=== PATIENT | male | born 1975 | race Caucasian/White ===

== ENCOUNTER 2017-03-26 06:23 | Inpatient (IN) | payer OTHER ==
[2017-03-26] VITALS (17 sets, daily range): BP systolic 103–147; BP diastolic 58–94; PULSE 90–116; RESP 12–20; O2SAT 93–100
[~2017-03-26] VITALS: Ht 182.9 cm; Wt 101.8 kg
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
[2017-03-26] MEDS ORDERED: Epinephrine Racemic 2.25% 0.5 mL Inhalation Solution NEB ONE (06:40)
[2017-03-26] MEDS ORDERED: MethylprednisoLONE Sodium Succinate 62.5 mg/mL 2 mL Inj IVPUSH ONE (06:40)
[2017-03-26 07:34] LABS: BASOPHILS % (AUTO) 0.3 % (0-3); EOSINOPHILS % (AUTO) 2.1 % (0-5); MONOCYTES % (AUTO) 7.4 % (4-12); Mean Corpuscular Hemoglobin 31.5 pg (27.0-35.0); Mean Corpuscular Volume 87.4 fL (81-100); NEUTROPHILS % (AUTO) 58.2 % (40-74); Platelet Count 176 bil/L (150-400)
[2017-03-26] MEDS: Propofol Inj 1,000,000 MCG in IV Premix 1 EACH IV SCH ×5 (07:40→20:47)
[2017-03-26] MEDS ORDERED: Rocuronium 10 mg/mL 5 mL Inj IVPUSH ONE (07:55)
[2017-03-26] MEDS ORDERED: Alum-Mag Hydrox-Simeth 30 mL Suspension PO PRN (08:05)
--- NOTE | 2017-03-26 08:22 | DRSVH ---
PROCEDURE: X-RAY CHEST ONE VIEW, PORTABLE ([id number]) INDICATIONS: INTUBATION TUBE PLACEMENT TECHNIQUE: One view of the chest was acquired. COMPARISON: None. FINDINGS: Surgical changes and devices: Endotracheal tube present 7.5 cm above the topher. front desk monitor lead s are seen over the chest. Lungs and pleura: No pleural effusions or pneumothorax. Question of minimal patchy infiltrate at the lung bases versus more likely subsegmental atelectasis. Lungs are otherwise clear. Mediastinum: Mediastinal contours appear normal. Heart size is normal. Bones and chest wall: No suspicious bony lesions. Overlying soft tissues appear unremarkable. IMPRESSION: Endotracheal tube relatively high. Probable segmental atelectasis rather than developing minimal patchy infiltrates at lung bases. Dictated by: Santy Stuart M.D. on 03/26/2017 at 8:19 Approved by: Santy Stuart M.D. on 03/26/2017 at 8:20
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
[2017-03-26] MEDS: Midazolam Inj 100 MG in IV Premix 1 EACH IV SCH (09:03)
--- NOTE | 2017-03-26 09:30 | ABG ---
DateTimeAnalyzed 09:22:00 -_ pH ____7.382 - 7.350 7.450 pCO2 ___37.3__ -mmHg 35.0 45.0 pO2 109 -mmHg 69.0 116 HCO3- ___21.7__ -mmol/L 22.0 26.0 ABE ___-2.4__ -mmol/L -2.0 2.0 tHb ___14.8__ -g/dL O2Hb ___96.3__ -% COHb ____0.9__ -% MetHb ____0.9__ -% sO2 ___98.1__ -% 25.0 FIO2 ___28.0__ -% PRVC 550 - PEEP ____5.0__ -cmH2O Set_RR ___14.0__ -b/min Drawn By JJ\\ - Date/Time Notified____ 09:30:00 -_ Spontaneous_RR ___14.0__ -b/min Oxygen Device 1 VENTILATOR - Notified By JJ - Notified Whom DR FUNMILAYO-SHELDON - B 762 -mmHg tO2 ___20.2__ -Vol% Arnav test _Positive -
--- NOTE | 2017-03-26 10:42 | DRSVH ---
PROCEDURE: X-RAY CHEST ONE VIEW, PORTABLE ([id number]) INDICATIONS: post tube adjustment TECHNIQUE: One view of the chest was acquired. COMPARISON: None. FINDINGS: Surgical changes and devices: There is an NG tube extending into the stomach. Side hole is in the dis cheko esophagus and needs to be advanced 10-15 cm. Endotracheal tube is 3 cm above the topher. Lungs and pleura: No pleural effusions or pneumothorax. Lungs are clear. Mediastinum: Mediastinal contours appear normal. Heart size is normal. Bones and chest wall: No suspicious bony lesions. Overlying soft tissues appear unremarkable. IMPRESSION: Endotracheal tube in good position 3 cm above the topher. NG tube shows a sidehole in the distal esophagus. Dictated by: Santy Stuart M.D. on 03/26/2017 at 10:35 Approved by: Santy Stuart M.D. on 03/26/2017 at 10:40
[2017-03-26 11:02] LABS: APPEARANCE,URINE CLOUDY (CLEAR,HAZY); COLOR,URINE YELLOW (YELLOW); OCCULT BLOOD,URINE NEGATIVE (NEGATIVE); UROBILINOGEN,URINE NORMAL (NORMAL)
--- NOTE | 2017-03-26 11:30 | NUR ---
Admit: Patient was transferred from ED via stretcher and was admitted to CCU room 2014 at about 1040. Slider board was utilized to transfer patient from stretcher to patient bed. Patient with vent settings: PRVC 21%/5PEEP/14RR/550TV. VSS. Tele: Sinus Tach low 100-110. PIV X2 infusing Propofol gtt 50mcg/kg/min and Midazolam 5mg/hr. OG tube to suction with small amount of dark red drainage (MD Notified). Delvalle draining pj urine to gravity. Pat at bedside.
[2017-03-26] MEDS: Chlorhexidine 0.12% 15 mL Oral Solution MT SCH ×4 (11:55→20:16)
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
[2017-03-26] MEDS ORDERED: Pantoprazole 4 mg/mL 10 mL Inj IVPUSH ONE (12:40)
[2017-03-26] MEDS ORDERED: Propofol 10,000 mCg/mL 20 mL Inj ONE (13:31)
[2017-03-26] MEDS ORDERED: Rocuronium 10 mg/mL 5 mL Inj ONE (13:31)
[2017-03-26] MEDS ORDERED: Succinylcholine Chloride 20 mg/mL 5 mL Inj ONE (13:31)
[2017-03-26] MEDS ORDERED: Etomidate 2 mg/mL 20 mL Inj IV ONE (13:31)
[2017-03-26] MEDS ORDERED: Dextrose 5% 0.45% NaCl 1,000 ML IV SCH (13:40)
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
[2017-03-26] MEDS: Famotidine Inj 20 MG in IV Premix 1 EACH IV SCH ×2 (14:12→20:22)
[2017-03-26] MEDS: MethylprednisoLONE Sodium Succinate 40 mg/mL Inj IVPUSH SCH ×2 (14:14→21:36)
--- NOTE | 2017-03-26 15:16 | DRSVH ---
PROCEDURE: X-RAY CHEST ONE VIEW, PORTABLE ([id number]) INDICATIONS: POST RE-INTUBATION TUBE PLACEMENT TECHNIQUE: One view of the chest was acquired. COMPARISON: None. FINDINGS: Surgical changes and devices: Endotracheal tube has been pulled back and is approximately 7 cm above the topher. Lungs and pleura: No pleural effusions or pneumothorax. Lungs are clear. Mediastinum: Mediastinal contours appear normal. Heart size is normal. Bones and chest wall: No suspicious bony lesions. Overlying soft tissues appear unremarkable. IMPRESSION: Acute disease is not seen in the AP semiupright chest. Repositioned endotracheal tube now 7 cm above the topher. Dictated by: Santy Stuart M.D. on 03/26/2017 at 15:13 Approved by: Santy Stuart M.D. on 03/26/2017 at 15:13
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
[2017-03-26] MEDS ORDERED: Pantoprazole 4 mg/mL 10 mL Inj IVPUSH SCH (16:30)
[2017-03-26] MEDS: Dextrose 5% 0.9% NaCl 1,000 ML IV SCH (16:39)
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
--- NOTE | 2017-03-26 18:30 | NUR ---
Replacement of ET tube: At about 1330 patients RR increased to 30s and patient RASS Score 1. SpO2: low 90s. Vent Settings PRVC 30%/5PEEP/14RR/550TV. RT was called to assess and noticed an ET cuff leak ( RT was unable to resolve) and that delivered tidal volumes had decreased. MD was notified. Anesthesiologist was called for ET tube replacement and administered Propofol 100mg and SUX 100mg IVP during the procedure. Patient now appears comfortable with RASS score 0. Vent settings: PRVC 30%/5PEEP/14RR/550TV. No signs of cuff leak. SpO2: mid 90s with RR 14. With delivered tidal volumes of 550-580. Will continue to monitor oxygenation and vitals closely.
[2017-03-26] MEDS: cefTRIAXone Inj 2,000 MG in Dextrose 5% Minibag Plus 50 ML IV SCH (20:22)
[2017-03-27] VITALS (12 sets, daily range): BP systolic 95–118; BP diastolic 45–74; PULSE 56–89; RESP 13–14; O2SAT 97–100
[2017-03-27] MEDS: Dextrose 5% 0.9% NaCl 1,000 ML IV SCH ×2 (00:23→11:34)
[2017-03-27] MEDS: Midazolam Inj 100 MG in IV Premix 1 EACH IV SCH (00:24)
[2017-03-27] MEDS: Chlorhexidine 0.12% 15 mL Oral Solution MT SCH ×6 (00:24→20:41)
[2017-03-27] MEDS: Propofol Inj 1,000,000 MCG in IV Premix 1 EACH IV SCH ×6 (00:31→23:16)
[2017-03-27 03:54] LABS: BASOPHILS % (AUTO) 0.1 % (0-3); EOSINOPHILS % (AUTO) 0 % (0-5); MONOCYTES % (AUTO) 3.7 % (4-12); Mean Corpuscular Volume 87.1 fL (81-100); NEUTROPHILS % (AUTO) 90.2 % (40-74); Platelet Count 173 bil/L (150-400)
[2017-03-27] MEDS: MethylprednisoLONE Sodium Succinate 40 mg/mL Inj IVPUSH SCH ×3 (05:38→22:14)
--- NOTE | 2017-03-27 05:45 | NUR ---
Mentation/Resp Patient remains intubated and on ventilator, sedated and not following commands Propofol at 50mcg/kg/min and Versed was at 5mg/hr at the start of this shift, Versed titrated down and currently at 1mg/hr, resting quietly and calm this shift, NPO and no OG tube per Dr. Arnold, 500ml urine output this shift, patient transferred to CCU SHERRIE bed, CHG bath done, linens changed, uneventful shift, will continue to monitor. Addendum: 03/27/17 at 0552 by NAZARIO ADDISON RN Amended: Links added.
[2017-03-27] MEDS ORDERED: Acetaminophen IV 1,000 MG in IV Premix 1 EACH IV ONE (06:35)
[2017-03-27] MEDS: Famotidine Inj 20 MG in IV Premix 1 EACH IV SCH ×2 (07:16→20:41)
--- NOTE | 2017-03-27 10:53 | DRSVH ---
PROCEDURE: CT NECK SOFT TISSUES WITH CONTRAST ([id number]) INDICATIONS: uvulitis TECHNIQUE: After the administration of intravenous contrast, 3.0 mm axial sections acquired from the sella to th e aortic arch. Additional oblique axial 3.0 mm sections acquired through the pharynx. 3 mm thick co jacquie reformats were generated. For radiation dose reduction, the following was used: automated exp osure control. COMPARISON: None. FINDINGS: Image quality: Excellent. Lymph nodes: No enlarged lymph nodes seen throughout the neck. Vessels: Visualized vasculature appears patent. Neck spaces: The oropharynx, nasopharynx, and pharynx demonstrate no mucosal lesions. There is an ov erall appearance of fullness within the distal oropharynx and peritonsillar regions. Nonenhancing flu id measuring approximately 6 mm AP by 20 mm transverse is present at the distal oropharynx, superior to the endotracheal tube. Extramucosal spaces appear unremarkable. Endotracheal tube is present and patent. Glands: The parotid and submandibular glands appear normal. Thyroid gland is unremarkable. Miscellaneous: Visualized brain and orbits appear normal. Lung apices demonstrate thickening along the right minor fissure. Superficial soft tissues appear normal. Bones: No suspicious bony lesions. Visualized sinuses and mastoids appear unremarkable. IMPRESSION: 1. Mild soft tissue fullness within the distalmost aspect of the oropharynx extending towards the per itonsillar region. Overall nonspecific and could be related to inflammation. No abscess is identifie d. As noted there is a small fluid collection, nonenhancing in the mid/distal oropharynx superior to the endotracheal tube. This could be secondary to secretions. However, clinical correlation is recom mended. 2. Mild opacity along the right minor fissure. This could be secondary to atelectasis versus developi ng pneumonia. Dictated by: Jennifer Gaines M.D. on 03/27/2017 at 10:45 Approved by: Jennifer Gaines M.D. on 03/27/2017 at 10:52
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
[2017-03-27] MEDS: fentaNYL 2,500 mCg/250 mL 2,500 MCG in IV Premix 1 EACH IV SCH (14:40)
[2017-03-27] MEDS: Dextrose 5% 0.45% NaCl 1,000 ML IV SCH (14:40)
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
--- NOTE | 2017-03-27 17:14 | NUR ---
Social Work: Multidisciplinary Rounds Pt discussed in am rounds. Pt is not medically stable for discharge at this time. Pt remains in CCU status- pt requires [employer] assessment however will not be seen today due to high census. [employer] will attempt to see pt and/or family tomorrow. CHERELLE Hubbard
--- NOTE | 2017-03-27 17:38 | NUR ---
Agitation/pain/CT scan Pt on versed at 2mg and propofol at 50mcg/ hr during beginning of shift. Pt awakes to voice and pulls at restraints and is restless (RASS score +1 to +2). Pt nods yes when asked if he was hurting, appears it is mostly his throat when asking him. Increased levels of sedation and discussed pain control with Dr Arnold. Started fentanyl drip per order and titrated off the versed and down on the fentanyl. Pt now RASS -1, and appears comfortable. TELE SR to SB 55-70s, titrating meds to effect (see CCU flow sheet). Took pt to CT scan this morning with no event. Pt remained hemodynamically stable and TELE SR on portable vent. No episodes of desaturation, tachycardia or agitation. at bedside most of shift, q2h turns and oral care continues.
[2017-03-27] MEDS: cefTRIAXone Inj 2,000 MG in Dextrose 5% Minibag Plus 50 ML IV SCH (18:35)
[2017-03-28] VITALS (11 sets, daily range): BP systolic 104–120; BP diastolic 54–80; PULSE 51–69; RESP 14–15; O2SAT 98–100
[2017-03-28] MEDS: Chlorhexidine 0.12% 15 mL Oral Solution MT SCH ×5 (00:29→16:30)
[2017-03-28] MEDS: Midazolam Inj 100 MG in IV Premix 1 EACH IV SCH (00:29)
[2017-03-28] MEDS: Propofol Inj 1,000,000 MCG in IV Premix 1 EACH IV SCH ×4 (02:01→12:38)
[2017-03-28] MEDS: Dextrose 5% 0.45% NaCl 1,000 ML IV SCH ×3 (04:10→17:03)
--- NOTE | 2017-03-28 04:24 | NUR ---
sedation/vent pt opens eyes with turning/mod stimulation, pt's states pt may go to OR in am for controlled extubation, propofol kept at 50mcg/kg/min due to pt attempting to sit up in bed with propofol at 45mcg/kg/min, fentanyl initially at 100mcg/hr now down to 50mcg/hr versed initially at 2mg/hr now at 1mg/hr, titrate sedation down as able to anticipate possible extubation in am RT in to see pt and deflated cuff, pt has air leak, hob up, resp rate=14-16/14, ls- cl/decreased, on sputum, oral care done, sats 98-100%, pt on vent at .30 fio2, tele- sb, hr 50's, bp low normal, afebrile, pj uop per f/c, no bm, bt present, abd snt, at bedside t/o shift, pt resting comfortably, see ccu flow sheet,
[2017-03-28 04:26] LABS: BASOPHILS % (AUTO) 0 % (0-3); EOSINOPHILS % (AUTO) 0 % (0-5); MONOCYTES % (AUTO) 3.6 % (4-12); Mean Corpuscular Hemoglobin 30.9 pg (27.0-35.0); Mean Corpuscular Volume 88.7 fL (81-100); NEUTROPHILS % (AUTO) 90.7 % (40-74); Platelet Count 175 bil/L (150-400)
--- NOTE | 2017-03-28 04:39 | NUR ---
pt's ring pt's ring removed per md order using lotion due to swollen fingers, ring given to pt's ,
--- NOTE | 2017-03-28 05:22 | ABG ---
DateTimeAnalyzed 05:14:00 -_ pH ____7.437 - 7.350 7.450 pCO2 ___33.4__ -mmHg 35.0 45.0 pO2 108 -mmHg 69.0 116 HCO3- ___22.2__ -mmol/L 22.0 26.0 ABE ___-0.9__ -mmol/L -2.0 2.0 tHb ___13.9__ -g/dL O2Hb ___96.5__ -% COHb ____0.9__ -% MetHb ____0.7__ -% sO2 ___98.1__ -% 25.0 FIO2 ___30.0__ -% PRVC 14 - PEEP ____5.0__ -cmH2O Set_RR ___14.0__ -b/min Vt __550.0__ -L Drawn By MM - Date/Time Notified____ 05:22:00 -_ Spontaneous_RR ___15.0__ -b/min Oxygen Device 1 VENTILATOR - Notified By MM - Notified Whom DR KENDREGEN - B 760 -mmHg tO2 ___18.9__ -Vol% Arnav test N/A -
[2017-03-28] MEDS: MethylprednisoLONE Sodium Succinate 40 mg/mL Inj IVPUSH SCH ×3 (05:46→22:27)
[2017-03-28] MEDS: Famotidine Inj 20 MG in IV Premix 1 EACH IV SCH ×2 (07:48→20:15)
--- NOTE | 2017-03-28 11:27 | NUR ---
NUTRITION FOLLOW UP: ASSESS: 42 YO male admitted to CCU with uvulitis causing upper airway obstruction, with unknown etiology. Pt remains intubated to protect his airway. Possible controlled extubation in the OR. ENT to see. PMHx: No PMH. DIET: NPO X 2 days. LABS: Reviewed. Cr 0.63, Glu 162, Ca 8.4 MEDICATIONS: Reviewed. Propofol @ ~30 ml/hr providing 792 kcal/day, Fentanyl, Solu-medrol. GI: No BM noted. SKIN: Wound eval pending. ANTHROPOMETRICS: Current Wt: 102.5 kg, BMI: 30.6 kg/m2. Admit wt: 99.1 kg, IBW: 80.9 kg (122% IBW) ESTIMATED NEEDS (VENT/BMI): Calories: 2614-8790 kcal/day (20-22 kcal/kg BW) Protein: 121-146 g protein (1.5-1.8 g/kg IBW) Fluid: Approx. 2973 mL (30 mL/kg BW) NUTRITION DIAGNOSIS: 1) Inadequate oral intake related to inability to consume sufficient energy, as evidenced by NPO/vent status, altered GI function.---PERSISTS. INTERVENTION: 1) In the event pt unable to be extubated, recommend initiate enteral feeding of Jevity 1.5 at 25 mL/hr. Once tolerance established, advance 10 ml every 4 hr to goal rate 40 mL/hr, which will provide 1320 kcal (2112 kcal with propofol), 56 g protein, meeting 100% kcal, 46% protein needs. 2) Once TF tolerance established, recommend add 2 packets [employer] liquid protein three times per day to provide 122 g protein, meeting 100% protein needs. 3) Will adjust goal rate enteral feeding based on daily propofol rate. MONITOR/EVALUATE: NPO/vent status, labs, POC, GI/nutrition status. Follow per high nutrition risk guidelines.
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
[2017-03-28] MEDS ORDERED: Propofol 10,000 mCg/mL 20 mL Inj ONE (12:34)
[2017-03-28] MEDS: fentaNYL 2,500 mCg/250 mL 2,500 MCG in IV Premix 1 EACH IV SCH (13:23)
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
--- NOTE | 2017-03-28 14:28 | NUR ---
Social Work: Multidisciplinary Rounds/Attempted Assessment Pt discussed in am rounds. Pt is not medically stable for discharge at this time. Pt remains in CCU status- pt remains on the vent. SW attempted to complete assessment with pt at bedside. Pt was sleeping and pt friend at bedside explained that she did not get a lot of sleep last night. SW provided phone number on pt white board and agreed to follow up with pt when appropriate. SW to continue to follow. CHERELLE Mia
--- NOTE | 2017-03-28 16:56 | PROG NOTE ---
[address] [address] PROGRESS NOTE PATIENT: HILDA WADE : 1975 MR#: [id number] ADMIT: 03/26/2017 JOB ID: [id number] DATE: 03/28/2017 SURGEON: Mike Huff MD HISTORY: Called to analyze the patient who presumably is ready for extubation, presumably to be performed in the operating room. History reviewed and patient examined. 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 He is breathing quietly, sedated in bed with orotracheal tube and breathing through his nose. On request, he can open his mouth. The uvula and tonsils now appear normal. ASSESSMENT: Markedly improved from his uvular swelling on admission three days ago. PLAN: I believe extubation would be possible and relatively safe this date.
--- NOTE | 2017-03-28 17:20 | PCM.HPANE ---
Patient Data Date of Service: Mar 28, 2017 Surgeon Admitting Provider:Ina Muñoz MD Attending Provider:Ina Muñoz MD Primary Care Physician:Ivy Other Provider: Reason for Visit Anaphylaxis/Intubated Ht/WT & BMI Height (Feet): 6 Height (Inches): 0 Weight (Kilograms): 102.500 Body Mass Index 29.59 Allergies Coded Allergies: No Known Allergies (Unverified , 03/26/17) Past Anesthesia History Anesthesia History: Denies:: Anesthesia Reactions Diabetes History Hx Diabetes?: No MRSA MRSA: No Medications Hypertension Medication: No Home Meds Incl Beta Angelika: No No Active Prescriptions or Reported Meds History History of ENT Problems?: Yes HEENT History: Positive for:: Dysphagia (this admission 03/26/17) Sinus Problem Denies:: Cataracts Glaucoma Denture Type: None Teeth Condition: Within Normal Limits Hx of Heart Problems?: No Cardiovascular History: Denies:: Cardiac Surgery Chest Pain Congestive Heart Failure Edema Heart Murmur Hypertension Irregular Heartbeat Pacemaker Thrombophlebitis Hx of Respiratory Problem?: Yes Respiratory History: Positive for:: Dyspnea (this admission 03/26/17) Denies:: Asthma COPD Chest Surgery Emphysema Hemoptysis Pneumonia Tuberculosis Hx Neurologic Problems?: No Neurological History: Denies:: Alzheimer's Disease CVA Dementia Dizziness Headaches Parkinson's Disease Seizures Hx of GI Problems?: No Hx of Problems?: No Genitourinary History: Denies:: HX of Hemodialysis Kidney Stones Urinary Tract Infection HX of Peritoneal Dialysis: No Male Hx: Denies:: Prostate Problems Scrotal Mass Testicular Surgery Hx Musculoskeletal Problems?: Yes Musculoskeletal History: Positive for:: Back Injury (sciatic nerve issues) Denies:: Joint Replacement Musculoskeletal Trauma Hx of Psycho/Social Problems?: No Psycho Social History: Denies:: Anxiety Bipolar Disorder Hx Depression Suicide Attempt Hx Surgeries?: No Hx Any Other Health Problems?: No Other History: Denies:: Cancer Hospitalization Thyroid Disease History Blood Transfusions: Positive for:: Accept Blood Products? Denies:: Blood Transfusions Hx Diabetes: No Hx Alcohol Use: Yes (a couple glasses of wine/beer per night)Hx Substance Use: No Smoking Status: Unknown if Ever Smoker Stop/Bang Treated for Sleep Apnea?: No (pt has RAMAN, refused to keep Cpap at home and sent it back) Do You Have a CPAP Machine?: No RAMAN Category 2: Yes Risk Assessment Category Category 1A: Patient has history of documented sleep apnea, and HAS NOT received any narcotic, sedative or anesthesia administration during this stay. Category 1B: Patient has history of documented sleep apnea, and HAS received any narcotic , sedative or anesthesia administration during this stay Category 2: Patient has SUSPECTED Obstructive Sleep Apnea, and HAS received any narcotic , sedative or anesthesia administration during this stay. Category 3: Patient has SUSPECTED Obstructive Sleep Apnea and HAS NOT received narcotic, sedative or anesthesia administration during this stay. Category 4: Outpatient in Procedural Areas with known sleep apnea or who screen positive for High Risk via the STOP/BANG questionnaire. Exam Exam Vital Signs Vital Signs Date Time Temp Pulse Resp B/P Pulse Ox O2 Delivery O2 Flow Rate FiO2 03/28/17 16:10 57 114/70 100 30 03/28/17 16:00 37.1 69 15 114/70 99 Mechanical Ventilator 30 03/28/17 13:00 65 113/62 98 30 03/28/17 12:00 36.9 58 14 110/60 99 Mechanical Ventilator 30 General Appearance: Alert, Cooperative HEENT/AIRWAY: Other (7.5 ETT in situ) Lungs: Normal Air Movement Heart: Regular Rate/Rhythm Meds/Labs/Diagnostics Labs Test 03/26/17 06:45 03/26/17 09:45 03/26/17 19:15 03/28/17 03:40 Erythrocyte Sedimentation Rate 2mm/hr (0-15) Hold Purple Top Tube Received (Received) Hold Blue Top Tube Received (Received) Total Bilirubin 0.6mg/dL (0.0-1.2) Aspartate Amino Transf (AST/SGOT) 22U/L (0-50) Alanine Aminotransferase (ALT/SGPT) 18U/L (0-44) Alkaline Phosphatase 49U/L (25-150) C-Reactive Protein 0.1mg/dL (0.0-0.5) Total Protein 7.6g/dL (6.4-8.4) Albumin 4.4g/dL (3.4-5.0) Thyroid Stimulating Hormone (TSH) 2.010uIU/mL (0.450-4.500) Free Thyroxine 1.39ng/dL (0.82-1.77) Hold [place] Top Tube Received (Received) Hold Méndez Top Tube Received (Received) Urine Color Yellow (YELLOW) Urine Appearance Cloudy (CLEAR,HAZY) Urine pH 6.0 (5.0-8.0) Urine Specific [place] 1.030 (1.003-1.035) Urine Protein Negativemg/dL (NEG,TRACE) Urine Glucose (UA) Negativemg/dL (NEGATIVE) Urine Ketones Negativemg/dL (NEGATIVE) Urine Occult Blood Negative (NEGATIVE) Urine Nitrite Negative (NEGATIVE) Urine Bilirubin Negative (NEGATIVE) Urine Urobilinogen Normalmg/dL (NORMAL) Urine Leukocyte Esterase Negative (NEGATIVE) Urine RBC 0-2/hpf (0-2) Urine WBC 0-5/hpf (0-5) Urine Epithelial Cells Few/hpf (NONE-MOD) Urine Crystals Ammonium biurates (NONE Urine Bacteria None/hpf (NONE-FEW) Urine Hyaline Casts None/lpf (NONE) Urine Granular Casts None seen (NONE SEEN) Urine Waxy Casts None seen (NONE SEEN) Urine Red Blood Cell Casts None seen (NONE SEEN) Urine White Blood Cell Casts None seen (NONE SEEN) Urine Mucus None seen (None Seen) Urine Trichomonas None seen (NONE SEEN) Urine Yeast None (NONE SEEN) Urinalysis Comment None Urine Culture Reflexed Not indicated White Blood Count 12.4th/mm3 (3.8-10.1) Red Blood Count 4.44mil/mm3 (4.40-5.80) Hemoglobin 13.7g/dL (13.8-17.2) Hematocrit 39.4% (41.0-50.0) Mean Corpuscular Volume 88.7fL (81-100) Mean Corpuscular Hemoglobin 30.9pg (27.0-35.0) Mean Corpuscular Hemoglobin Concent 34.8% (32.0-37.0) Red Cell Distribution Width 14.2% (12.3-15.4) Platelet Count 175bil/L (150-400) Neutrophils (%) (Auto) 90.7% (40-74) Lymphocytes (%) (Auto) 5.5% (14-46) Monocytes (%) (Auto) 3.6% (4-12) Eosinophils (%) (Auto) 0% (0-5) Basophils (%) (Auto) 0% (0-3) Sodium Level 144mEq/L (134-144) Potassium Level 4.1mEq/L (3.5-5.2) Chloride Level 108mEq/L (97-108) Carbon Dioxide Level 21mmol/L (18-29) Blood Urea Nitrogen 15mg/dL (6-24) Creatinine 0.63mg/dL (0.76-1.27) Estimat Glomerular Filtration Rate 150mL/min (>59) Glucose Level 162mg/dL (60-99) Calcium Level 8.4mg/dL (8.5-10.1) Prealbumin 25mg/dL (20-40) Procalcitonin 0.02ng/mL (0.00-0.08) Test 03/28/17 11:05 Prothrombin Time 10.7sec (8.1-12.5) Prothromb Time International Ratio 1.00ratio Activated Partial Thromboplast Time 24.7sec (22.8-33.0) Plan Impression Patient chart reviewed, patient interviewed and anesthestic plan with risks, benefits, and alternatives discussed, and informed consent obtained. ASA Physical Status: ASA2 Mod Systemic Disease Anesthetic Plan: GA Bene/Risks/Altern/Consents: Yes HP Complete Prior to Induction: Yes Hugh Shore MD Mar 28, 2017 17:08
[2017-03-28] MEDS ORDERED: Lactated Ringer's 1,000 ML IV ONE (17:49)
--- NOTE | 2017-03-28 18:04 | NUR ---
Sedation/extubation Pt remained off versed and on propfol at 50, and fentanyl at 50 most of shift until extubation in OR at 1814. Pt came back A&O x3, able to speak and move around in bed. at bedside, frequent rounding continues. Pt on 2L NC, sats high 90s.
--- NOTE | 2017-03-28 18:24 | PCM.ANEP1 ---
Post Anesthesia PACU Phase 1 Assessment Date of Service: Mar 28, 2017 Vital Signs 138/69 85 99% 14 36.5 Vital Signs Date Time Temp Pulse Resp B/P Pulse Ox O2 Delivery O2 Flow Rate FiO2 03/28/17 16:10 57 114/70 100 30 03/28/17 16:00 37.1 69 15 114/70 99 Mechanical Ventilator 30 03/28/17 13:00 65 113/62 98 30 03/28/17 12:00 36.9 58 14 110/60 99 Mechanical Ventilator 30 Anesthetic Administered: MAC Level of Alertness: Awake, talking GREENBERG's with Equal Strength: Yes Pain: No Nausea or Vomiting: No CV Function & Hydration Stable: Yes Airway Device: Oxygen Delivery: Nasal Cannula Lungs: Normal Air Movement Dermatome Level: Full Sensation PACU Phase 2 Assessment Complications: No Follow up Care: N/A Patient Instructions Provided: N/A Hugh Shore MD Mar 28, 2017 18:24
[2017-03-28] MEDS: cefTRIAXone Inj 2,000 MG in Dextrose 5% Minibag Plus 50 ML IV SCH (18:34)
[2017-03-28] MEDS: Ondansetron 2 mg/mL 2 mL Inj IVPUSH PRN ×2 (19:40→20:10)
[2017-03-28] MEDS ORDERED: Promethazine Inj 25 MG in Dextrose 5%-Pha MIX 50 ML IV ONE (21:20)
[2017-03-29] VITALS: BP 105/60; PULSE 52; RESP 11; O2SAT 99
--- NOTE | 2017-03-29 00:27 | NUR ---
nausea/resp status zofran given 4mg iv times two at beginning of shift for c/o nausea, paged for additional antiemetic, pt vomited approx 100mls, clear/yellowish output, phenergan given, effective, npo, abd soft, bt present, no bm, flatus present, pt anxious during evening portion of shift, by 2230 pt was calmer and able to go to sleep--hs care done and linens changed, pt's on pull out couch in room, pt a/o times three, nikhil, able to help turn and move self up in bed, ls-clear, pt decreased from 4 liters o2 per nc to two liters o2 per nc, sats 98-99%, resp rate = 11-14, tele- sb, hr 50s, bp stable, afebrile, see ccu flow sheet, plan:increase rom, activity, swallow eval in am,
[2017-03-29 03:29] LABS: Mean Corpuscular Hemoglobin 30.4 pg (27.0-35.0); Mean Corpuscular Volume 86.7 fL (81-100)
[2017-03-29 04:00] VITALS: BP 104/60; PULSE 56; RESP 12; O2SAT 99
[2017-03-29] MEDS: Dextrose 5% 0.45% NaCl 1,000 ML IV SCH (05:33)
[2017-03-29] MEDS: MethylprednisoLONE Sodium Succinate 40 mg/mL Inj IVPUSH SCH (05:33)
[2017-03-29 08:08] VITALS: BP 108/62; PULSE 56; RESP 14; O2SAT 97
[2017-03-29] MEDS: Famotidine Inj 20 MG in IV Premix 1 EACH IV SCH (08:19)
--- NOTE | 2017-03-29 10:34 | NUR ---
Evaluation completed. Please go to "Notes" then click on "Assessments and Notes" (bottom left corner of screen). Then select appropriate discipline tab on top of screen.
--- NOTE | 2017-03-29 13:20 | PCM.PNMED ---
Subjective Date of Service Mar 29, 2017 Subjective pt was successfully extubated yesterday denied sore throat, SOB, chest pain, dee was discontinued, c/o weaknesss, PT ordered Exam Vital Signs Vital Sign - Last Date Time Temp Pulse Resp B/P Pulse Ox O2 Delivery O2 Flow Rate FiO2 03/29/17 08:08 37.0 56 14 108/62 97 03/29/17 04:00 Supplement Oxygen 03/29/17 04:00 2.00 03/28/17 16:10 30 Intake and Output 03/28/17 03/28/17 03/29/17 Cumulative From/Thru 15:00 23:00 07:00 03/26/17 06:31 - 03/29/17 05:46 Intake Total 1086 ml 969 ml 8190 ml Output Total 600 ml 600 ml 4150 ml Balance 486 ml 369 ml 4040 ml Intake Oral 50 ml 50 ml IV Total 1086 ml 919 ml 8140 ml Output Urine Total 600 ml 500 ml 4000 ml Gastric Drainage Total 50 ml Emesis 100 ml 100 ml # Bowel Movements 0 0 Exam NAD, comfortably laying down on the bed no JVD, MMM, no LAD, Uvula-normal size RRR, nl s1, s2 no mrg CTAB, no w,c, no stridor S,ND,NT,normoactive BS+ warm, no edema, pulses 2/2 IVs and Medications Medications Reviewed: Medications were reviewed in detail Lab and Diagnostics Result Diagram: 03/29/1725403/29/17254 X-Rays, CTs and MRIs PROCEDURE: X-RAY CHEST ONE VIEW, PORTABLE ([id number]) INDICATIONS: post tube adjustment TECHNIQUE: One view of the chest was acquired. COMPARISON: None. FINDINGS: Surgical changes and devices: There is an NG tube extending into the stomach. Side hole is in the distal esophagus and needs to be advanced 10-15 cm. Endotracheal tube is 3 cm above the topher. Lungs and pleura: No pleural effusions or pneumothorax. Lungs are clear. Mediastinum: Mediastinal contours appear normal. Heart size is normal. Bones and chest wall: No suspicious bony lesions. Overlying soft tissues appear unremarkable. IMPRESSION: Endotracheal tube in good position 3 cm above the topher. NG tube shows a sidehole in the distal esophagus. Dictated by: Santy Stuart M.D. on 03/26/2017 at 10:35 Approved by: Santy Stuart M.D. 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 Given enlarged Uvula, upper airway obstruction, pt was intubated in ED, pt was started on Solu-medrol 125mg followed by 60mg q8h, pt was evaulated by ENT, noted improved swelling of Uvula, extubated 03/[address] soft tissue neck showed mild soft tissue swelling distal oropharynx, no definite abscess. pt was started on Rocephin 03/26 to cover group A streptococcus, possible PNA. -pt remained clinically stable post-extubation, will monitor respiratory status likely one more day -abx stopped today, monitor for now -solu-medrol switched to prednisone starting today, please taper on d/c, continue benadryl prn dispo:PCC status, likely d/c home tomorrow, follow up with ENT in 1week, assess by PT today diet:general, dvt ppx:SCD Full code VTE Mechanical Devices: Intermittant Pneumatic CD Time spent 35min Ina Muñoz MD Mar 29, 2017 13:20
--- NOTE | 2017-03-29 15:02 | CONS ---
[address] [address] CONSULTATION REPORT PATIENT: HILDA WADE : 1975 MR#: [id number] ADMIT: 03/26/2017 JOB ID: [id number] DATE OF SERVICE: 03/28/2017 CHIEF COMPLAINT: Airway edema. HISTORY OF PRESENTING ILLNESS: This is a 42-year-old male patient presented three days prior to the consultation to the emergency department with noticing a sudden onset swelling of the airway and difficulty breathing. He was intubated in the emergency department and admitted to the ICU. He is an otherwise healthy patient with no prior history of similar events. Examination was very limited due to his intubation, but the ED report had mentioned swelling of this uvula and posterior pharyngeal wall which appeared concerning enough to require intubation. Past medical history, past surgical history, family and social history are available on the intake H and P, although as mentioned, his family states that he is otherwise healthy. MEDICATIONS: His medications included nothing contributory on presentation. PHYSICAL EXAMINATION: His physical examination was somewhat limited due to his intubation. Generally, the patient was intubated and sedated, nonresponsive to questioning. Neurologic examination was limited due to intubation. Examination of his neck demonstrate a midline trach and no palpable masses or lesions. No significant edema of the neck itself. Examination of the ears demonstrated no external deformities. Examination of the nose demonstrated no external deformities and a midline caudal septum. Examination of the mouth was again limited due to his intubation although his lips, teeth and tongue appeared normal. Pulmonary examination demonstrated clear lung booth bilaterally with regular breathing due to mechanical ventilation. Cardiovascular examination demonstrated a regular rate and rhythm with no murmurs, rubs or gallops. ASSESSMENT AND PLAN: A 42-year-old male patient with acute onset swelling of his airway of unknown etiology with no prior history of anything similar. His does report that he had eaten a hotdog at some point in the night before this occurred. The working diagnosis would be a non-hereditary angioedema which can sometimes be caused by ingestion of nitrates such as one might find in a hotdog although this is difficult to prove. I discussed his plan of care with the ICU team who wanted to extubate him but there was concern to do this at the bedside and they requested that we take him to the operating room to do this along with direct laryngoscopy. I discussed the risks with his to include bleeding, infection, injury to lips, tongue or teeth, need for an emergent surgical airway or reintubation. I also discussed the risks of a possible tracheostomy to include bleeding, infection, scarring of the neck, injury to the recurrent laryngeal nerves which could result in temporary or permanent difficulty with speech and swallow or a need for prolonged tracheostomy and serious reaction to anesthetic medication. The patient's elected to proceed with the surgery and he was taken to the operating room for extubation. Please see the attached operative note after extubation which occurred uneventfully. The patient did well and I had recommended discharge with followup on an outpatient basis.
--- NOTE | 2017-03-29 15:16 | OP ---
[address] [address] OPERATIVE REPORT PATIENT: HILDA WADE : 1975 MR#: [id number] ADMIT: 03/26/2017 JOB ID: [id number] DATE OF SURGERY: 03/28/2017 PREOPERATIVE DIAGNOSIS(ES): Airway edema. POSTOPERATIVE DIAGNOSIS(ES): Airway edema. PROCEDURE PERFORMED: Direct laryngoscopy with GlideScope. SURGEON: Hugh Stratton MD. CONGRESSIONAL ASSISTANT SURGEON: Mike Huff MD. MATERIAL: To Lab. COMPLICATIONS: None. BLOOD LOSS: Zero cc. ANESTHESIA: General anesthesia. INDICATIONS: This is a 42-year-old male patient who presented to the hospital emergency room with edema of his airway requiring intubation on presentation who is scheduled for extubation. The ICU team was concerned that he may not be safe to extubate in the ICU and therefore, they had requested that we take him to the operating room for extubation which we are doing. I discussed the risks with his to include the risks of possible surgical airway if needed, and she had elected to proceed. INTRAOPERATIVE FINDINGS: Include no significant edema of the airway as visualized on GlideScope. DESCRIPTION OF PROCEDURE: The patient's was met and identified in the ICU. The patient was sedated and unable to answer questions. Risks were discussed, and alternatives were also discussed to include continued intubation versus extubation at the bedside which could be dangerous. The patient's elected to undergo these procedures with the understanding that the surgical airway would only be attempted if we were unable to reintubate him safely should his airway fail to support him, and the patient's elected to proceed. DESCRIPTION OF PROCEDURE: After taking the patient into the operating room, he was extubated uneventfully by the Anesthesia service. A GlideScope was used to evaluate the larynx and laryngeal structures, and no significant edema was noted. The vocal cords were normal appearing, although the patient was sedated and unable to move them on command. He was able to generate a forceful cough suggesting normal vocal cord functionality. He was turned back over to Anesthesia for awakening and returned to the ICU for further management.
--- NOTE | 2017-03-29 15:43 | NUR ---
NUTRITION FOLLOW UP: ASSESS: 42 YO male admitted to CCU with uvulitis causing upper airway obstruction, with unknown etiology. Pt was able to be extubated 03/28. Diet was advanced per ST to soft today. Pt has not had a BMx3 days. PMHx: No PMH. DIET: Soft, no PO yet LABS: Reviewed. Cr 0.66, Glu 144 MEDICATIONS: Reviewed. GI: No BM noted. SKIN: Wound eval pending, edil 17 ANTHROPOMETRICS: Current Wt: 101.8 kg, BMI: 30.4 kg/m2. Admit wt: 99.1 kg, IBW: 80.9 kg (122% IBW) ESTIMATED NEEDS: Calories: 5755-7184 kcal/day (20-22 kcal/kg BW) Protein: 100-120g/day (1.0-1.2g/kg) NUTRITION DIAGNOSIS: 1) Inadequate oral intake related to inability to consume sufficient energy, as evidenced by NPO/vent status, altered GI function.---IMPROVING INTERVENTION: 1) Advance diet per ST. Will monitor for PO intake/tolerance. MONITOR/EVALUATE: PO, ST, BM, labs, POC, GI/nutrition status. Follow per moderate nutrition risk guidelines.
--- NOTE | 2017-03-29 16:07 | NUR ---
Evaluation completed. Please go to "Notes" then click on "Assessments and Notes" (bottom left corner of screen). Then select appropriate discipline tab on top of screen.
[2017-03-29 16:24] VITALS: BP 106/67; PULSE 61; RESP 22; O2SAT 96
--- NOTE | 2017-03-29 16:27 | NUR ---
Social Work Note: Brief Assessment/Multidisciplinary Rounds Data& Assessment: Pt was discussed in AM rounds today, per MD pt has been extubated. EMR Reviewed. SW met with pt and pt at bedside to discuss discharge planning, SW role explained and Discharge Planning checklist provided. Carlos Farrar is a 42 year old male admitted on 03/26/2017 for anaphylaxis, Pt required intubation. Pt is independent at baseline and independent with self care during this hospitalization . PT cleared pt to return home when medically ready. Pt is active and works at [employer] where he also receives primary care. Pt lives in [place] with his and drives at baseline with no additional DME needs. Pt to transport him home when medically ready. Pt provided with DPOA.AD paperwork to review and complete when possible. Pt and pt deny any other needs. No other discharge needs or MD orders identified at this time. SW to continue to follow if any needs or orders should arise. Plan: Anticipated discharge home via POV when medically ready. Pt and pt deny any other needs. No other discharge needs or MD orders identified at this time. SW to continue to follow if any needs or orders should arise. CHERELLE Mai
--- NOTE | 2017-03-29 17:00 | NUR ---
Activity/Diet: Ambulating in room and walked in halls with PT this afternoon without report of CP, SOB or CP. Diet was advanced from NPO to Soft/thins after swallow eval was completed. Pt tolerating diet without report of N/V/D. Report given to Tami Garza RN.
[2017-03-29] MEDS ORDERED: MethylprednisoLONE Sodium Succinate 40 mg/mL Inj IVPUSH SCH (18:00)
[2017-03-29 20:30] VITALS: BP 108/69; PULSE 64; RESP 18; O2SAT 98
[2017-03-29 23:47] VITALS: BP 115/67; PULSE 65; RESP 18; O2SAT 97
[2017-03-30 03:19] VITALS: PULSE 60; O2SAT 97
--- NOTE | 2017-03-30 03:26 | NUR ---
No Pain / Throat / No Tele/ VSS /Weakness Pt denies pain, throat is red with mildly swollen Uvula. Pt drinking water w/o having difficulty swallowing. Pt occ c/o scratchy throat, but declines pain medication, using ice chips for comfort. No c/o chest pain, Tele DCd. HR regular in the 60s. VS stable and afebrile. No c/o SOB, RA sats 97-98%. Generalized weakness noted. Addendum: 03/30/17 at 0621 by BRIANA REDDY RN Pt up ambulating in hallways this morning with SBA and FWW, gait steady.
[2017-03-30 07:57] VITALS: BP 124/84; PULSE 60; RESP 16; O2SAT 96
[2017-03-30] MEDS ORDERED: predniSONE 20 mg Tablet PO SCH (08:30)
--- NOTE | 2017-03-30 10:54 | PCM.DIMED ---
Discharge Instructions Date of Service Mar 30, 2017 Dates of Hospitalization Mar 26, 2017 at 08:26 Discharge Diagnosis Discharge Diagnosis 1. Uveitis (uveal angioedema) possibly related to nitrates from hot dog Diet Discharge Diet: Other (avoid hotdogs and other treatments with nitrates until follow-up with manager valuation.) Call your provider Call your provider for: Fever or Chills, Shortness of breath Patient Instructions Patient Instructions Call 911 if you experience any symptoms of airway fullness, lip swelling or tongue swelling. Follow-up plan Please follow-up with [facility] within the next week and requests allergy testing at that time. Arnav Huff MD Mar 30, 2017 10:54
--- NOTE | 2017-03-30 11:14 | NUR ---
Ambulation/Throat Pt able to ambulate in room without assist. Pt steady on feet. Pt states throat feels scratchy, offered ice cream cups, pt states ice cream helped with scratchiness of throat. Care continues.
--- NOTE | 2017-03-30 13:22 | PCM.DC.MED ---
Discharge Summary Date of Service Mar 30, 2017 Dates of Hospitalization Date of Hospital Admission Mar 26, 2017 at 08:26 Date of Discharge: Mar 30, 2017 Providers: Admitting Physician: Ina Muñoz MD Primary Care Physician: Nopcp Attending Physician: Arnav Huff MD Diagnosis at Time of Discharge Diagnosis at Time of Discharge 1. Uveitis (uveal angioedema) possibly related to nitrates from hot dog Consultations Otolaryngology, Dr. Mike Huff Procedures XRay, CTs & MRIs PROCEDURE: X-RAY CHEST ONE VIEW, PORTABLE ([id number]) INDICATIONS: post tube adjustment TECHNIQUE: One view of the chest was acquired. COMPARISON: None. FINDINGS: Surgical changes and devices: There is an NG tube extending into the stomach. Side hole is in the distal esophagus and needs to be advanced 10-15 cm. Endotracheal tube is 3 cm above the topher. Lungs and pleura: No pleural effusions or pneumothorax. Lungs are clear. Mediastinum: Mediastinal contours appear normal. Heart size is normal. Bones and chest wall: No suspicious bony lesions. Overlying soft tissues appear unremarkable. IMPRESSION: Endotracheal tube in good position 3 cm above the topher. NG tube shows a sidehole in the distal esophagus. Dictated by: Santy Stuart M.D. on 03/26/2017 at 10:35 Approved by: Santy Stuart M.D. on 03/26/2017 at 10:40 Invasive Procedures Endotracheal intubation for airway protection, mechanical ventilation. Brief History 42-year-old male with no past medical history, healthy, [employer] presented with acute onset of difficulty breathing started this morning. As patient was intubated, history was obtained by his at the bedside. As per his , patient intermittently had sore throat, especially in the morning, but resolved with throat clearing. Patient never experienced his throat closed up with any allergies or medicine or any other triggers in the past. Yesterday, patient stayed up late with his friends on [employer], went to bed around 00:30, didn't noticed anything different on his talking, breathing, pt didn't c/o any sx. This morning, pt woke up, first complained "tonsils are enlarged" able to talk initially but couldn't talk well progressively worse, decided to come to ED. denied any recent sick contact, unusual food intake, travel, any new medicine including [id number] medicine. As a [employer], patient had vaccination about a week ago, did not have any reactions afterwards. If it is unclear which vaccinations he got. ED VS 132/89, 89, 20, 36.8, 99% on RA, pt initially doing okay but minimally improved with inhaler, required intubation. pt received racemic Epi, solu- [id number] iv, [id number]. started on propofol and versed, transfer to CCU Upon CCU, pt was deeply sedated, vented, noted dark maroon color gastric secretion on suction, no rash throughout, no edema on face, tongue size normal. 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 Given enlarged Uvula, upper airway obstruction, pt was intubated in ED, pt was started on Solu-medrol 125mg followed by 60mg q8h, pt was evaulated by ENT, noted improved swelling of Uvula, extubated 03/[address] soft tissue neck showed mild soft tissue swelling distal oropharynx, no definite abscess. pt was started on Rocephin 03/26 to cover group A streptococcus, possible PNA. -pt remained clinically stable post-extubation, will monitor respiratory status likely one more day -abx stopped today, monitor for now -solu-medrol switched to prednisone starting today, please taper on d/c, continue benadryl prn dispo:PCC status, likely d/c home tomorrow, follow up with ENT in 1week, assess by PT today diet:general, dvt ppx:SCD Full code Exam Vital Signs (Last) Date Time Temp Pulse Resp B/P Pulse Ox O2 Delivery O2 Flow Rate FiO2 03/30/17 07:57 36.6 60 16 124/84 96 Room Air 03/29/17 04:00 2.00 03/28/17 16:10 30 Exam Patient was seen and examined on the day of discharge Test 03/26/17 06:45 03/26/17 09:45 03/26/17 19:15 7/17/17 03:40 Erythrocyte Sedimentation Rate 2mm/hr (0-15) Hold Purple Top Tube Received (Received) Hold Blue Top Tube Received (Received) Total Bilirubin 0.6mg/dL (0.0-1.2) Aspartate Amino Transf (AST/SGOT) 22U/L (0-50) Alanine Aminotransferase (ALT/SGPT) 18U/L (0-44) Alkaline Phosphatase 49U/L (25-150) C-Reactive Protein 0.1mg/dL (0.0-0.5) Total Protein 7.6g/dL (6.4-8.4) Albumin 4.4g/dL (3.4-5.0) Thyroid Stimulating Hormone (TSH) 2.010uIU/mL (0.450-4.500) Free Thyroxine 1.39ng/dL (0.82-1.77) Hold [place] Top Tube Received (Received) Hold [place]én[place] Top Tube Received (Received) Urine Color Yellow (YELLOW) Urine Appearance Cloudy (CLEAR,HAZY) Urine pH 6.0 (5.0-8.0) Urine Specific [place] 1.030 (1.003-1.035) Urine Protein Negativemg/dL (NEG,TRACE) Urine Glucose (UA) Negativemg/dL (NEGATIVE) Urine Ketones Negativemg/dL (NEGATIVE) Urine Occult Blood Negative (NEGATIVE) Urine Nitrite Negative (NEGATIVE) Urine Bilirubin Negative (NEGATIVE) Urine Urobilinogen Normalmg/dL (NORMAL) Urine Leukocyte Esterase Negative (NEGATIVE) Urine RBC 0-2/hpf (0-2) Urine WBC 0-5/hpf (0-5) Urine Epithelial Cells Few/hpf (NONE-MOD) Urine Crystals Ammonium biurates (NONE Urine Bacteria None/hpf (NONE-FEW) Urine Hyaline Casts None/lpf (NONE) Urine Granular Casts None seen (NONE SEEN) Urine Waxy Casts None seen (NONE SEEN) Urine Red Blood Cell Casts None seen (NONE SEEN) Urine White Blood Cell Casts None seen (NONE SEEN) Urine Mucus None seen (None Seen) Urine Trichomonas None seen (NONE SEEN) Urine Yeast None (NONE SEEN) Urinalysis Comment None Urine Culture Reflexed Not indicated Complement C4 24mg/dL (14-44) Neutrophils (%) (Auto) 90.7% (40-74) Lymphocytes (%) (Auto) 5.5% (14-46) Monocytes (%) (Auto) 3.6% (4-12) Eosinophils (%) (Auto) 0% (0-5) Basophils (%) (Auto) 0% (0-3) Prealbumin 25mg/dL (20-40) Procalcitonin 0.02ng/mL (0.00-0.08) Test 03/28/17 11:05 03/29/17 02:55 Prothrombin Time 10.7sec (8.1-12.5) Prothromb Time International Ratio 1.00ratio Activated Partial Thromboplast Time 24.7sec (22.8-33.0) White Blood Count 12.9th/mm3 (3.8-10.1) Red Blood Count 4.44mil/mm3 (4.40-5.80) Hemoglobin 13.5g/dL (13.8-17.2) Hematocrit 38.5% (41.0-50.0) Mean Corpuscular Volume 86.7fL (81-100) Mean Corpuscular Hemoglobin 30.4pg (27.0-35.0) Mean Corpuscular Hemoglobin Concent 35.1% (32.0-37.0) Red Cell Distribution Width 14.0% (12.3-15.4) Platelet Count 165bil/L (150-400) Sodium Level 142mEq/L (134-144) Potassium Level 4.2mEq/L (3.5-5.2) Chloride Level 107mEq/L (97-108) Carbon Dioxide Level 23mmol/L (18-29) Blood Urea Nitrogen 16mg/dL (6-24) Creatinine 0.66mg/dL (0.76-1.27) Estimat Glomerular Filtration Rate 142mL/min (>59) Glucose Level 144mg/dL (60-99) Calcium Level 8.5mg/dL (8.5-10.1) Discharge Medications No Active Prescriptions or Reported Meds Followup Plan Follow-up plan Please follow-up with [facility] within the next week and requests allergy testing at that time. Discharge Diet: Other (avoid hotdogs and other treatments with nitrates until follow-up with valve repairer.) Patient Instructions Call 911 if you experience any symptoms of airway fullness, lip swelling or tongue swelling. Time spent 40 minutes Arnav Huff MD Mar 30, 2017 13:22
--- NOTE | 2017-03-30 14:11 | NUR ---
Social Work Note: Discharge/Multidisciplinary Rounds Data& Assessment: Pt was discussed in AM rounds today, per MD pt is medically ready to discharge home via POV. PT was recommending cane for pt, but pt and MD declined need for a cane for pt. SW met with pt and pt at bedside to confirm discharge plan and assess for any unmet needs. Pt independent with ambulation and with self. Pt transporting pt home today. Pt and pt denies any other needs. No other MD or pt needs identified. All updated and agreeable to plan. Plan: Per pt is medically ready to discharge home via POV. Pt and pt denies any other needs. No other MD or pt needs identified. All updated and agreeable to plan. CHERELLE Mai
--- NOTE | 2017-03-30 16:37 | NUR ---
Discharge Pt discharged at approximately 1155 to home with . Pt given educational material for Uvilitis, highlighted followup care with [facility] for allergy testing for possible allergic reaction to nitrates in hot dogs per MD. IV DC with catheter intact. Pt acknowledged and understood all information. Escorted by CARPET INSTALLER HELPER in wheelchair to door.
== END 2017-03-30 11:55 | disposition home or self-care (01) | DRG 916 ==
LOC: SED 06:23 → CCU 08:26 → PCC 03-29 07:45
PROVIDERS: ADMIT Internal Medicine; ATTEND Internal Medicine
PROC: 5A1945Z Respiratory Ventilation, 24-96 Consecutive Hours (ICD-10-PCS; principal; 2017-03-26)
PROC: 0BH17EZ Insertion of Endotracheal Airway into Trachea, Via Natural or Artificial Opening (ICD-10-PCS; 2017-03-26)
PROC: 4A033R1 Measurement of Arterial Saturation, Peripheral, Percutaneous Approach (ICD-10-PCS; 2017-03-26)
PROC: 0BP Respiratory System, Removal (ICD-10-PCS; 2017-03-28)
DX: T78.3XXA Angioneurotic edema, initial encounter (principal); K12.2 Cellulitis and abscess of mouth; J98.8 Other specified respiratory disorders